=== PATIENT | male | born 1990 | race Hispanic/Latino ===

== ENCOUNTER 2019-04-28 03:08 | Emergency (ER) | payer OTHER ==
[2019-04-28] MEDS ORDERED: IBUPROFEN 600 MG TABLET ONE (03:48)
[2019-04-28] MEDS ORDERED: ACETAMINOPHEN EXTRA STRENGTH 500 MG TABLET ONE (03:48)
== END 2019-04-28 05:05 ==
LOC: EDH 03:08
DX: J10.1 Influenza due to other identified influenza virus with other respiratory manifestations (principal)
CPT/HCPCS: 87804